=== PATIENT | female | born 1945 | race Caucasian/White ===

== ENCOUNTER 2022-02-14 13:08 | Outpatient (CLI) | payer MEDICARE, MEDICAID | END 2022-02-14 13:09 | disposition home or self-care (01) | LOC: CSHWCC 13:08 | PROVIDERS: ATTEND Nurse Practitioner Family | DX: S01.401D Unspecified open wound of right cheek and temporomandibular area, subsequent encounter (principal); S01.501D Unspecified open wound of lip, subsequent encounter | CPT/HCPCS: 97139; G0463; 99204 ==

== ENCOUNTER 2022-03-01 14:53 | Outpatient (CLI) | payer MEDICARE, MEDICAID | END 2022-03-01 14:54 | disposition home or self-care (01) | LOC: CSHWCC 14:53 | PROVIDERS: ATTEND Nurse Practitioner Family | DX: S01.401D Unspecified open wound of right cheek and temporomandibular area, subsequent encounter (principal); S01.501D Unspecified open wound of lip, subsequent encounter | CPT/HCPCS: 97139; G0463; 99213 ==